=== PATIENT | female | born 1990 | race Two or more races ===

== ENCOUNTER 2017-05-27 21:03 | Emergency (ER) | payer BC, MEDICAID ==
[~2017-05-27] VITALS: Ht 167.6 cm; Wt 115.2 kg
[2017-05-27 21:48] LABS: Basophils # (auto) 0.3 uL; Eosinophils # (auto) 0.3 uL; Eosinophils % (auto) 3.3 % (0.0-7.0); Hematocrit 43.3 % (36.0-46.0); Hemoglobin 14.5 g/dL (12.2-16.2); Lymphocytes # (auto) 2.2 uL; Lymphocytes % (auto) 24.4 % (10.0-50.0); Mean Corpuscular Hemoglobin 28.4 pg (28.0-32.0); Mean Corpuscular Hgb Conc. 33.4 g/dL (32.0-36.0); Monocytes # (auto) 0.6 uL; Monocytes % (auto) 6.9 % (0.0-12.0); Neutrophils # (auto) 5.7 uL; Neutrophils % (auto) 62.4 % (37.0-80.0); Nucleated Red Blood Cells % 0.1 %; Platelet Count (auto) 231 10^3/uL (140-450); Red Cell Distribution Width 13.6 % (11.8-14.3); White Blood Cell 9.1 10^3/uL (4.4-10.8)
[2017-05-27 21:58] LABS: Albumin 3.8 g/dL (3.4-5.0); BUN/Creatinine Ratio 8.8; Calcium 9.1 mg/dL (8.5-10.1); Potassium 3.6 mmol/L (3.5-5.1)
[2017-05-27 22:06] LABS: Bilirubin, Total 0.5 mg/dL (0.2-1.0); Total Protein 7.8 g/dL (6.4-8.2)
[2017-05-27 22:18] LABS: Urine Bacteria MANY /hpf (None Seen); Urine Blood Negative /uL (Negative); Urine Mucus FEW (None Seen); Urine WBC 8 /hpf (0 - 5)
[2017-05-27] MEDS ORDERED: ONDANSETRON HCL 4 MG/2 ML VIAL IV ONE (22:30)
[2017-05-27] MEDS ORDERED: NALBUPHINE HCL 10 MG/1ml INJECTION IV ONE (22:30)
[2017-05-27] MEDS ORDERED: cefTRIAXone 1GM/10ml IVPUSH 10 ML IV ONE (23:45)
[2017-05-28 04:46] VITALS: BP 117/64
== END 2017-05-28 04:48 | disposition home or self-care (01) ==
LOC: ER 21:03
DX: K29.70 Gastritis, unspecified, without bleeding (principal)
CPT/HCPCS: 36415; 74176; 80053; 81001; 83690; 84702; 85025; 93005; 96374; 96375; 99285; J2300; J2405

== ENCOUNTER 2022-01-27 20:36 | Emergency (ER) | payer BC, MEDICAID ==
[~2022-01-27] VITALS: Ht 170.2 cm; Wt 106.0 kg
[2022-01-28 00:10] LABS: Basophils # (auto) 0.1 10 ^3/uL (0-0.2); Basophils % (auto) 0.6 % (0.0-2.0); Eosinophils # (auto) 0.1 10 ^3/uL (0-0.8); Eosinophils % (auto) 0.8 % (0.0-7.0); Hemoglobin 10.8 g/dL (12.2-16.2); Lymphocytes # (auto) 1.6 10 ^3/uL (0.4-5.4); Monocytes # (auto) 0.9 10 ^3/uL (0-1.3); Neutrophils # (auto) 5.7 10 ^3/uL (1.6-8.6); White Blood Cell 8.3 10^3/uL (4.4-10.8)
[2022-01-28 00:14] LABS: Hematocrit 33.6 % (36.0-46.0); Lymphocytes % (auto) 19.7 % (10.0-50.0); Mean Corpuscular Hemoglobin 24.8 pg (28.0-32.0); Mean Corpuscular Volume 77.4 fL (80.0-100.0); Monocytes % (auto) 10.3 % (0.0-12.0); Neutrophils % (auto) 68.6 % (37.0-80.0); Nucleated Red Blood Cells % 0.1 %; Red Blood Cells 4.34 10^6/uL (4.0-5.20); Red Cell Distribution Width 15.8 % (11.8-14.3)
[2022-01-28 00:34] LABS: BUN/Creatinine Ratio 33.3; Calcium 8.3 mg/dL (8.5-10.1); Potassium 3.8 mmol/L (3.5-5.1)
[2022-01-28 00:36] LABS: Bilirubin, Total 0.2 mg/dL (0.2-1.0); Total Protein 7.4 g/dL (6.4-8.2)
[2022-01-28] MEDS ORDERED: CEPH-510 PO (05:38)
[2022-01-28] MEDS ORDERED: CEPHALEXIN 250 MG CAP PO ONE (05:45)
[2022-01-28] MEDS ORDERED: KETOROLAC TROMETH 60MG/2ML VIAL IM ONE (05:45)
[2022-01-28 06:50] VITALS: BP 102/68
== END 2022-01-28 06:53 | disposition home or self-care (01) ==
LOC: ER 20:36
DX: U07.1 COVID-19 (principal); B34.1 Enterovirus infection, unspecified; B08.4 Enteroviral vesicular stomatitis with exanthem
CPT/HCPCS: 36415; 71045; 80053; 85025; 87426; 96372; 99284; J1885

== ENCOUNTER 2023-01-30 14:06 | Emergency (ER) | payer MEDICAID ==
[~2023-01-30] VITALS: Ht 170.2 cm; Wt 117.6 kg
[~2023-01-30 14:06] MED LIST: CEPH-510 PO
[2023-01-30] MEDS ORDERED: SODIUM CHLORIDE 0.9% 1,000 ML IV ONE (14:30)
[2023-01-30] MEDS ORDERED: MORPHINE SULFATE 4 MG/ML SYR/VIAL IV ONE (14:45)
[2023-01-30] MEDS ORDERED: ONDANSETRON HCL 4 MG/2 ML VIAL IV ONE (14:45)
[2023-01-30 15:28] LABS: Basophils # (auto) 0 10 ^3/uL (0-0.2); Basophils % (auto) 0.3 % (0.0-2.0); Eosinophils # (auto) 0 10 ^3/uL (0-0.8); Eosinophils % (auto) 0.4 % (0.0-7.0); Hematocrit 44.9 % (36.0-46.0); Hemoglobin 14.4 g/dL (12.2-16.2); Lymphocytes # (auto) 1.4 10 ^3/uL (0.4-5.4); Lymphocytes % (auto) 17.1 % (10.0-50.0); Mean Corpuscular Hemoglobin 27.3 pg (28.0-32.0); Mean Corpuscular Volume 85.3 fL (80.0-100.0); Monocytes # (auto) 0.5 10 ^3/uL (0-1.3); Monocytes % (auto) 6.7 % (0.0-12.0); Neutrophils # (auto) 6.2 10 ^3/uL (1.6-8.6); Neutrophils % (auto) 75.5 % (37.0-80.0); Nucleated Red Blood Cells % 0.1 %; Red Blood Cells 5.26 10^6/uL (4.0-5.20); Red Cell Distribution Width 15.8 % (11.8-14.3); White Blood Cell 8.2 10^3/uL (4.4-10.8)
[2023-01-30 16:16] LABS: Alanine Aminotransferase 29 U/L (7-40); Albumin 4.9 g/dL (3.2-4.8); Alkaline Phosphatase 89 U/L (46-116); Anion Gap 9 (5-15); Aspartate Aminotransferase 25 U/L (13-40); BUN/Creatinine Ratio 13.2 (10.0-20.0); Blood Urea Nitrogen 7 mg/dL (9-23); Calcium 9.3 mg/dL (8.7-10.4); Carbon Dioxide 25 mmol/L (20-30); Chloride 108 mmol/L (98-107); Glucose 84 mg/dL (74-106); Lipase 51 U/L (12-53); Magnesium 1.9 mg/dL (1.6-2.6); Potassium 3.7 mmol/L (3.5-5.1); Sodium 142 mmol/L (136-145)
[2023-01-30 16:17] LABS: Bilirubin, Total 0.7 mg/dL (0.2-1.0); Total Protein 7.6 g/dL (5.7-8.2)
[2023-01-30 16:23] LABS: INR 1.04 (0.9-1.15); Partial Thromboplastin Time 26.4 SEC (24.5-34.5); Prothrombin Time 10.9 sec (9.3-11.8)
[2023-01-30 19:00] VITALS: BP 93/56; PULSE 62; RESP 15; TEMP 97.5
[2023-01-30] MEDS ORDERED: ZOFR4T PO (19:17)
[2023-01-30] MEDS ORDERED: FAMO20TA10 PO (19:17)
[2023-01-30] MEDS ORDERED: ACET-6 PO (19:17)
[2023-01-30 19:45] VITALS: O2SAT 99
== END 2023-01-30 19:45 | disposition home or self-care (01) ==
LOC: ER 14:06
DX: K29.70 Gastritis, unspecified, without bleeding (principal); K80.20 Calculus of gallbladder without cholecystitis without obstruction; K44.9 Diaphragmatic hernia without obstruction or gangrene; Z79.899 Other long term (current) drug therapy
CPT/HCPCS: 36415; 74176; 80053; 83605; 83690; 83735; 84484; 85025; 85610; 85730; 87040; 96374; 96375; 99285; J2270; J2405; J7030

== ENCOUNTER 2024-08-25 15:40 | Emergency (ER) | payer MEDICAID ==
[~2024-08-25] VITALS: Ht 170.2 cm; Wt 127.0 kg
[~2024-08-25 15:40] MED LIST changes: +ACET-6 PO; +FAMO20TA10 PO; +ZOFR4T PO
--- NOTE | 2024-08-25 16:52 | ECG ---
[facility] Test Date: 2024-08-25 Test Time: 16:50:41 Pat Name: DEX CAIN Department: ER Room: Gender: F Tobacco Farmworker: HADLEY : 1990 Requested By: RAMIRO VIDES Order Number: [id number] Reading MD: Dagoberto Manning Measurements Intervals [place] Rate: 77 P: 62 NV: 162 QRS: 85 QRSD: 101 T: 9 QT: 386 QTc: 437 Interpretive Statements Sinus rhythm ST elev, probable normal early repol pattern Electronically Signed On 08-27-2024 20:32:05 PDT by Dagoberto Manning Please click the below link to view image of tracing.
[2024-08-25 17:29] LABS: Basophils # (auto) 0.1 10 ^3/uL (0-0.2); Eosinophils # (auto) 0.1 10 ^3/uL (0-0.8); Hematocrit 45.5 % (36.0-46.0); Hemoglobin 15.5 g/dL (12.2-16.2); Lymphocytes # (auto) 1.7 10 ^3/uL (0.4-5.4); Lymphocytes % (auto) 24.2 % (10.0-50.0); Mean Corpuscular Hemoglobin 29.2 pg (28.0-32.0); Mean Corpuscular Hgb Conc. 34.2 g/dL (32.0-36.0); Mean Corpuscular Volume 85.5 fL (80.0-100.0); Monocytes # (auto) 0.7 10 ^3/uL (0-1.3); Neutrophils # (auto) 4.4 10 ^3/uL (1.6-8.6); Neutrophils % (auto) 62.8 % (37.0-80.0); Nucleated Red Blood Cells % 0.1 %; Platelet Count (auto) 208 10^3/uL (140-450); Red Blood Cells 5.32 10^6/uL (4.0-5.20); Red Cell Distribution Width 14.1 % (11.8-14.3); White Blood Cell 7.1 10^3/uL (4.4-10.8)
--- NOTE | 2024-08-25 17:36 | DVH ---
Exam: CT CT AB PEL WO CON-NO ORAL OR IV History: abd pain n/v/d Comparison Study: None available at time of dictation. TECHNIQUE: Multidetector CT of the abdomen and pelvis without IV contrast. Axial, coronal and sagitta l multiplanar reformats were obtained from the axial data set by the technologist. Radiation Dose Information: CT Dose: CTDI volume is 25.5 mGy. Dose-length product is 1412.08 mGy*cm FINDINGS: The lung bases are clear. Partially visualized heart is unremarkable. Cholelithiasis without evidence of acute cholecystitis. Mild hepatomegaly. Otherwise, liver, spleen, pancreas and adrenal glands are unremarkable. Kidneys, ureters and urinary bladder are unremarkable. Uterus and adnexa are unremarkable. Stomach is unremarkable. Small bowel loops are unremarkable. Appendix is unremarkable. Colonic diver ticulosis without diverticulitis. No evidence of intraperitoneal free air or free fluid. No evidence of aortic aneurysm. No significant lymphadenopathy. Tiny fat containing umbilical hernia. Tiny fat containing right inguinal hernia. No destructive osseo us lesions are noted. IMPRESSION: No evidence of acute abdominopelvic abnormalities. Colonic diverticulosis without diverticulitis. Cholelithiasis with no evidence of acute cholecystitis.
--- NOTE | 2024-08-25 17:45 | ED.PDOC ---
GI ASSESSMENT HPI Comments 34 y/o morbidly obese F presents with c/o epigastric abdominal pain, nausea, vomiting, and diarrhea, today. Patient is a poor historian. She reports on sudden and unprovoked onset of symptoms at 1300, this evening. Pain is constant. vomitus being "yellow" in appearance, and diarrhea being "watery" and "yellowish-brown" in appearance. Patient states having similar pain, in the past 2x years ago with "ulcers" after diagnosed by an upper endoscopy Patient denies being currently. She denies having any blood in her vomit or stools, constipation, urinary sym ptoms, fever, chills, or other associated symptoms or modifying factors at this time. Vitals: temperature of 98.1F, pulse rate of 87, respiratory rate of 16, blood pressure of 115/77, and a SpO2 of 96%RA Past medical history: ulcers, gallstones, rheumatoid arthritis, asthma Past surgical history: , endoscopy HPI: Poor Historian. REVIEW OF SYSTEMS: CONSTITUTIONAL: Denies acute: fever, diaphoresis, chills, generalized weakness. HEAD: Denies acute: headache, photophobia Eyes: Denies acute: Double vision, vision loss, eye pain, eye discharge. EARS: Denies acute: tinnitus, hearing loss, ear discharge, ear pain, THROAT: Denies acute: sore throat, swelling, difficulty swallowing , pain with swallowing, change in voice. NECK: Denies acute: neck pain, neck swelling, stiff neck. HEART: Denies acute : chest pain, palpitations, LUNGS: Denies acute: SOB, wheezing, cough, hemoptysis ABDOMEN: Denies acute: melena , hematemesis, hematochezia SKIN: Denies acute: rash, redness, lesions, itchiness. EXTREMITIES: Denies acute: calf pain, numbness, tingling, weakness, denies pain in extremity. Denies acute: Low back pain. Neuro: Denies acute: focal neurological deficit, motor or sensory focal neurological deficit, tremors, seizure like activity, confusion, dizziness, change in mental status, loss of bowel or bladder function, cauda equina like symptoms. : Denies acute: dysuria, hematuria, flank pain, increase in urinary frequency. PSYCH: Denies acute: hallucination, suicidal ideation, homicidal ideation. FEMALE: Denies acute: abnormal vaginal bleeding, foul odor, unusual discharge. PHYSICAL EXAM: General: ----mild----acute distress, awake and alert. Head: normocephalic, atraumatic. Neck: supple, trachea is midline, no swelling. Throat: Normal phonation. Eyes:, no erythema, no purulent discharge, no proptosis, no icterus. Heart: regular rate, regular rhythm, no significant murmur appreciated. Lungs: no apparent respiratory distress, Able to speak in full sentences. No wheezing, no rhonchi, no crackles. No stridors Clear to auscultation bilaterally. Abdomen: Epigastric tender to palpation, non distended, soft, no guarding, no rebound, + bowel sounds. Obese. Neuro: Awake, Alert, oriented to name, self, situation, follows commands GCS=15. Speech is normal. Skin: no petechia, no purpura, no cyanosis, non-pale, not jaundice. Lower extremities: --no - Pitting edema no deformity, no focal swelling, no calf TTP. Makes eye contact. moves all four extremities. Face: no apparent facial droop. Patient ambulates with a cane. ED COURSE: Chief Complaint: Nausea/Vomiting Time Seen by MD: 16:40 Primary Care Provider: RAUL Reviewed Notes: Nurses Notes, Medications, Allergies Allergies: Coded Allergies: NO KNOWN ALLERGIES (Unverified , 11/28/14) Home Meds Active Scripts Ciprofloxacin Hcl (Cipro) 500 Mg Tab, 500 MG PO BID for 7 Days, #14 CAP Prov:RAMIRO VIDES DO 08/25/24 Ondansetron Odt 4MG Tab (ZOFRAN PO) 4 Mg Tb, 4 MG PO Q8HPRN PRN for 3 Days, #9 TAB ODT TAB-DISSOLVE IN MOUTH, THEN SWALLOW Prov:RAMIRO VIDES DO 08/25/24 Famotidine (PEPCID TABLET) 20 Mg Tb, 1 TAB PO BID for 30 Days, #60 TAB 3 Refills Prov:CLARA HESTER DO 01/30/23 Ondansetron Odt 4MG Tab (ZOFRAN PO) 4 Mg Tb, 4 MG PO QIDPRN for 10 Days, #40 TAB ODT TAB-DISSOLVE IN MOUTH, THEN SWALLOW Prov:CLARA HESTER DO 01/30/23 Acetaminophen (Acetaminophen Extra Stren) 500 Mg Tab, 500 MG PO QIDPRN for 10 Days, #40 TAB Prov:CLARA HESTER DO 01/30/23 Discontinued Scripts Cephalexin Monohydrate (Cephalexin) 500 Mg Cap, 500 MG PO Q6HR for 7 Days, #28 TAB Prov:RAMIRO VIDES DO 08/25/24 Cephalexin ( Keflex 500) 500 Mg Cap, 1 CAP PO QID for 7 Days, #28 CAP Prov:ASHLYN KASPER MD 01/28/22 Information Source: Patient Mode of Arrival: Wheelchair Past Medical History PAST MEDICAL HISTORY: Arthritis, Gallstones, PUD 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 Was a procedure done?: No GI differential Dx Differential Diagnosis: Other (DDX include Diverticulitis, colitis, gastroenteritis, acute abdomen, SBO, enteritis, constipation, volvulus, appendicitis, Gallbladder disease, choledocolithiasis, ascending cholangitis, pancreatitis, intraAbdominal mass/neoplasm, hepatitis, UTI, pylonephritis, kidney stone, aneurysm, dissection, Inflammatory bowel disease, gastroparesis, ischemic bowel, ovarian torsion, ovarian cyst/mass, tubo-ovarian abscess, , ectopic , PID, STD.) X-Ray, Labs, Meds, VS Vital Signs Date Time Temp Pulse Resp B/P (MAP) Pulse Ox O2 Delivery O2 Flow Rate FiO2 08/25/24 22:13 93 20 94 Room Air* 0 21 08/25/24 22:13 98.0 93 20 126/98 (107) 94 98.0 08/25/24 17:45 77 08/25/24 16:50 77 08/25/24 16:32 98.1 87 16 115/77 (90) 96 98.1 Lab Test 08/25/24 17:04 08/25/24 00:00 Range/Units White Blood Count 7.1 4.4-10.8 10^3/uL Red Blood Count 5.32 H 4.0-5.20 10^6/uL Hemoglobin 15.5 12.2-16.2 g/dL Hematocrit 45.5 36.0-46.0 % Mean Corpuscular Volume 85.5 80.0-100.0 fL Mean Corpuscular Hemoglobin 29.2 28.0-32.0 pg Mean Corpuscular Hemoglobin Concent 34.2 32.0-36.0 g/dL Red Cell Distribution Width 14.1 11.8-14.3 % Platelet Count 208 140-450 10^3/uL Mean Platelet Volume 7.2 6.9-10.8 fL Neutrophils (%) (Auto) 62.8 37.0-80.0 % Lymphocytes (%) (Auto) 24.2 10.0-50.0 % Monocytes (%) (Auto) 10.0 0.0-12.0 % Eosinophils (%) (Auto) 2.0 0.0-7.0 % Basophils (%) (Auto) 1.0 0.0-2.0 % Neutrophils # (Auto) 4.4 1.6-8.6 10 ^3/uL Lymphocytes # (Auto) 1.7 0.4-5.4 10 ^3/uL Monocytes # (Auto) 0.7 0-1.3 10 ^3/uL Eosinophils # (Auto) 0.1 0-0.8 10 ^3/uL Basophils # (Auto) 0.1 0-0.2 10 ^3/uL Nucleated Red Blood Cells 0.1 % Sodium Level 142 136-145 mmol/L Potassium Level 4.4 3.5-5.1 mmol/L Chloride Level 106 98-107 mmol/L Carbon Dioxide Level 28 20-31 mmol/L Anion Gap 8 5-15 Blood Urea Nitrogen < 5 L 9-23 mg/dL Creatinine 0.51 L 0.550-1.02 mg/dL Glomerular Filtration Rate Calc 126 >90 mL/min BUN/Creatinine Ratio 9.8 L 10.0-20.0 Serum Glucose 107 H 74-106 mg/dL Lactic Acid Level 1.5 0.4-2.0 mmol/L Calcium Level 9.4 8.7-10.4 mg/dL Total Bilirubin 0.4 0.2-1.0 mg/dL Aspartate Amino Transferase (AST) 49 H 13-40 U/L Alanine Aminotransferase (ALT) 46 H 7-40 U/L Alkaline Phosphatase 99 46-116 U/L Troponin I High Sensitivity < 3 L </=34 ng/L Total Protein 7.1 5.7-8.2 g/dL Albumin 4.5 3.2-4.8 g/dL Lipase 47 12-53 U/L Urine Color Brown H Yellow Urine Clarity Ex.turbid Clear Urine pH 5.5 5.0-9.0 Urine Specific [place] 1.020 1.001-1.035 Urine Protein 1+ H Negative Urine Ketones Trace Negative Urine Blood 3+ H Negative /uL Urine Nitrite Negative Negative Urine Bilirubin Negative Negative Urine Urobilinogen Normal Negative mg/dL Urine Leukocyte Esterase 2+ Negative /uL Urine RBC 6813 0 - 4 /hpf Urine Microscopic WBC 34 H 0-5 /HPF Urine Squamous Epithelial Cells Few <5 /hpf Urine Bacteria None seen None Seen /hpf Urine Hyaline Casts Mod 0 - 2 /lpf Urine Mucus Few None Seen Urine Glucose Normal Normal mg/dL [facility] [id number] [place] [address] Ph: [phone] DIAGNOSTIC IMAGING Diagnostic Imaging Report : [id number] Signed PATIENT: DEX CAIN ACCT: [id number] UNIT: [id number] : 1990 LOC: ER ROOM / BED: / AGE / SEX: 34 / F ADM STATUS: REG ER SERVICE 1642 ORDERING PHYSICIAN: RAMIRO VIDES DO PROCEDURE(s): ABPL - CT AB PEL WO CON-NO ORAL OR IV REASON: abd pain n/v/d ORDER NUMBER(s): [id number], ACCESSION NUMBER(s): [id number] Exam: CT CT AB PEL WO CON-NO ORAL OR IV History: abd pain n/v/d Comparison Study: None available at time of dictation. TECHNIQUE: Multidetector CT of the abdomen and pelvis without IV contrast. Axial, coronal and sagittal multiplanar reformats were obtained from the axial data set by the technologist. Radiation Dose Information: CT Dose: CTDI volume is 25.5 mGy. Dose-length product is 1412.08 mGy*cm FINDINGS: The lung bases are clear. Partially visualized heart is unremarkable. Cholelithiasis without evidence of acute cholecystitis. Mild hepatomegaly. Otherwise, liver, spleen, pancreas and adrenal glands are unremarkable. Kidneys, ureters and urinary bladder are unremarkable. Uterus and adnexa are unremarkable. Stomach is unremarkable. Small bowel loops are unremarkable. Appendix is unremarkable. Colonic diverticulosis without diverticulitis. No evidence of intraperitoneal free air or free fluid. No evidence of aortic aneurysm. No significant lymphadenopathy. Tiny fat containing umbilical hernia. Tiny fat containing right inguinal hernia. No destructive osseous lesions are noted. IMPRESSION: No evidence of acute abdominopelvic abnormalities. Colonic diverticulosis without diverticulitis. Cholelithiasis with no evidence of acute cholecystitis. ATED BY: LISSY SERNA DO DICTATED DATE/TIME: 08/25/241733 SIGNED BY: LISSY SERNA DO SIGNED DATE/TIME: 08/25/241733 CC: Time of 1ST Reevaluation: 16:40 Reevaluation 1ST: Unchanged Patient Education/Counseling: Diagnosis, Treatment Family Education/Counseling: No Family Present Comments Patient presented with the above HPI.---abdominal pain---workup was initiated. patient was found with the above mentioned diagnosis. the following medications were ordered: please refer to order lists of meds and tests obtained by myself Dr. Vides. Patient ED course and VS have been stabilized. Patient has been reassessed in the ED and remained in a stable condition. Pertinent incidental findings were discussed with the patient and/or family. Patient/family voices understanding and is agreeable with plan. Patient has been observed in the ED adequate length of time to insure improvement/stability. Escalation of care considered: Consideration of escalation to observation or admission Patient was DISCHARGED home in a stable condition. All the reports of any imaging studies that were ordered by myself were reviewed by myself. Departure 1 Departure Time of Disposition: 20:00 Impression: Primary Impression: Epigastric pain Additional Impressions: Nausea vomiting and diarrhea UTI (urinary tract infection) Cholelithiasis Disposition: HOME / SELF CARE / HOMELESS Condition: Stable Additional Instructions: Additional instructions: You MUST follow-up with your primary care/family doctor in 1 to 2 days. If you are unable to see your primary care/family doctor, please return to our emergency room for re-assessment and re-evaluation in 1 to 2 days. Return to the emergency room here in our facility or to the nearest ER [facility] if your symptoms change or worsen. CONSULTATIONS: you MUST Follow-up for consultation as soon as possible with: -gastroenterology in 1-2 days. Please call for appointment. You MUST call the consultants office yourself to make an appointment. You may need to arrange that through your insurance and/or your primary/family doctor. If you are unable to see the customer experience consultant in 1 to 2 days, you must return to our emergency room (or any other ER of your choice) for re-assessment and re- evaluation. Adequate fluid hydration. Avoid fatty greasy spicy food. Avoid caffeinated products. Avoid NSAIDs. Below is a copy of your radiological report for follow up: [place] [address] Ph: [phone] DIAGNOSTIC IMAGING Diagnostic Imaging Report : [id number] Signed PATIENT: DEX CAIN ACCT: [id number] UNIT: [id number] : 1990 LOC: ER ROOM / BED: / AGE / SEX: 34 / F ADM STATUS: REG ER SERVICE 1642 ORDERING PHYSICIAN: RAMIRO VIDES DO PROCEDURE(s): ABPL - CT AB PEL WO CON-NO ORAL OR IV REASON: abd pain n/v/d ORDER NUMBER(s): [id number], ACCESSION NUMBER(s): [id number] Exam: CT CT AB PEL WO CON-NO ORAL OR IV History: abd pain n/v/d Comparison Study: None available at time of dictation. TECHNIQUE: Multidetector CT of the abdomen and pelvis without IV contrast. Axial, coronal and sagittal multiplanar reformats were obtained from the axial data set by the technologist. Radiation Dose Information: CT Dose: CTDI volume is 25.5 mGy. Dose-length product is 1412.08 mGy*cm FINDINGS: The lung bases are clear. Partially visualized heart is unremarkable. Cholelithiasis without evidence of acute cholecystitis. Mild hepatomegaly. Otherwise, liver, spleen, pancreas and adrenal glands are unremarkable. Kidneys, ureters and urinary bladder are unremarkable. Uterus and adnexa are unremarkable. Stomach is unremarkable. Small bowel loops are unremarkable. Appendix is unremarkable. Colonic diverticulosis without diverticulitis. No evidence of intraperitoneal free air or free fluid. No evidence of aortic aneurysm. No significant lymphadenopathy. Tiny fat containing umbilical hernia. Tiny fat containing right inguinal hernia. No destructive osseous lesions are noted. IMPRESSION: No evidence of acute abdominopelvic abnormalities. Colonic diverticulosis without diverticulitis. Cholelithiasis with no evidence of acute cholecystitis. ATED BY: LISSY SERNA DO DICTATED DATE/TIME: 08/25/241733 SIGNED BY: LISSY SERNA DO SIGNED DATE/TIME: 08/25/241733 CC: e-Prescriptions Ciprofloxacin Hcl (Cipro) 500 Mg Tab 500 MG PO BID for 7 Days, #14 CAP Prov: RAMIRO VIDES DO 08/25/24 Ondansetron Odt 4MG Tab (ZOFRAN PO) 4 Mg Tb 4 MG PO Q8HPRN PRN for 3 Days, #9 TAB ODT TAB-DISSOLVE IN MOUTH, THEN SWALLOW Prov: RAMIRO VIDES DO 08/25/24 Discharged With: Self Critical Care Note Critical Care Time?: No I personally scribed for RAMIRO VIDES DO ([email or web address]) on 08/25/24 at 17:45. Electronically submitted by Giancarlo Robert ([email or web address]). I personally scribed for RAMIRO VIDES DO ([email or web address]) on 08/25/24 at 18:17. Electronically submitted by Giancarlo Robert ([email or web address]). I personally scribed for RAMIRO VIDES DO ([email or web address]) on 08/25/24 at 19:38. Electronically submitted by Giancarlo Robert ([email or web address]). I personally scribed for RAMIRO VIDES DO ([email or web address]) on 08/25/24 at 21:04. Electronically submitted by Giancarlo Robert ([email or web address]). RAMIRO VIDES DO Aug 25, 2024 17:45
[2024-08-25 17:49] LABS: Albumin 4.5 g/dL (3.2-4.8); Alkaline Phosphatase 99 U/L (46-116); Anion Gap 8 (5-15); Calcium 9.4 mg/dL (8.7-10.4); Carbon Dioxide 28 mmol/L (20-31); Chloride 106 mmol/L (98-107); Lipase 47 U/L (12-53); Potassium 4.4 mmol/L (3.5-5.1); Sodium 142 mmol/L (136-145); Total Protein 7.1 g/dL (5.7-8.2)
[2024-08-25 17:50] LABS: Alanine Aminotransferase 46 U/L (7-40); Aspartate Aminotransferase 49 U/L (13-40); BUN/Creatinine Ratio 9.8 (10.0-20.0); Bilirubin, Total 0.4 mg/dL (0.2-1.0); Blood Urea Nitrogen < 5 mg/dL (9-23); Glucose 107 mg/dL (74-106)
[2024-08-25 20:59] LABS: Urine Bacteria None Seen /hpf (None Seen)
[2024-08-25 21:11] LABS: Urine Blood 3+ /uL (Negative); Urine Clarity Ex.Turbid (Clear); Urine Color Brown (Yellow); Urine Hyaline Cast MOD /lpf (0 - 2); Urine Mucus FEW (None Seen); Urine Protein, UAD 1+ (Negative); Urine Squamous Epithelial Cell FEW /hpf (<5); Urine Urobilinogen Normal (Negative); Urine WBC 34 /HPF (0-5); Urine pH 5.5 (5.0-9.0)
[2024-08-25] MEDS ORDERED: ZOFR4T PO (21:20)
[2024-08-25] MEDS ORDERED: CEPH500C PO (21:20)
[2024-08-25] MEDS ORDERED: CIPR-173 PO (21:22)
[2024-08-25] MEDS: ONDANSETRON HCL 4 MG/2 ML VIAL IV ONE (21:56)
[2024-08-25] MEDS: LIDOCAINE VISCOUS 2% 15ML UD PO ONE (21:56)
[2024-08-25] MEDS: SUCRALFATE 1 GM TAB PO ONE (21:57)
[2024-08-25] MEDS: SODIUM CHLORIDE 0.9% 1,000 ML IV ONE (21:57)
[2024-08-25] MEDS: PANTOPRAZOLE 40 MG TAB PO ONE (21:57)
[2024-08-25 22:13] VITALS: BP 126/98; PULSE 93; RESP 20; TEMP 98; O2SAT 94
== END 2024-08-25 23:07 | disposition home or self-care (01) ==
LOC: ER 15:40
DX: R10.13 Epigastric pain (principal); R11.2 Nausea with vomiting, unspecified; R19.7 Diarrhea, unspecified; N39.0 Urinary tract infection, site not specified; K80.20 Calculus of gallbladder without cholecystitis without obstruction; J45.909 Unspecified asthma, uncomplicated; Z87.11 Personal history of peptic ulcer disease
CPT/HCPCS: 36415; 74176; 80053; 81001; 83605; 83690; 84484; 85025; 93005; 96374; 99285; J2405